=== PATIENT | male | born 1955 | race Caucasian/White ===

== ENCOUNTER → 2023-10-13 11:00 | Outpatient (REF) | payer MEDICARE, OTHER, SELFPAY | LOC: DHVS 11:00 | PROVIDERS: ATTENDING PHYSICIAN Physician Assistant; FAMILY PHYSICIAN Surgery Vascular Surgery | DX: I77.1 Stricture of artery (principal); I77.9 Disorder of arteries and arterioles, unspecified | CPT/HCPCS: 93880 ==

== ENCOUNTER → 2023-11-02 08:27 | Outpatient (REF) | payer MEDICARE, OTHER, SELFPAY | LOC: RAD 08:27 | PROVIDERS: ATTENDING PHYSICIAN Surgery Vascular Surgery; FAMILY PHYSICIAN Internal Medicine Geriatric Medicine | DX: I77.0 Arteriovenous fistula, acquired (principal) | CPT/HCPCS: 93990 ==

== ENCOUNTER 2023-11-24 06:07 | Day surgery (SDC) | payer MEDICARE, OTHER, SELFPAY ==
--- NOTE | 2023-11-17 07:36 | PTCARENOTE ---
Patients 08/14/23 EKG abnormal- reviewed by Dr. Hawk- no additional interventions required
[2023-11-24] VITALS (10 sets, daily range): BP systolic 127–190; BP diastolic 46–91; BMI 27.3
[2023-11-24 06:39] LABS: Hematocrit 37.2 % (39.0-52.0); Hemoglobin 12.2 g/dL (13.0-18.0); Mean Corp Hgb Conc. 32.8 g/dL (33.0-37.0); Mean Corpuscular Hgb 31.6 pg (27.0-31.0); Mean Corpuscular Volume 96.4 fL (80.0-94.0); Mean Platelet Volume 11.1 fL (7.4-10.4); Platelet Count 144 10^3/uL (130-400); Red Blood Cell Count 3.86 10^6/uL (4.70-6.10); Red Cell Dist. Width 15.4 % (11.5-14.5); White Blood Cell Count 10.6 10^3/uL (4.8-10.8)
[2023-11-24 06:49] LABS: INR 1.07; PT 13.9 Sec (11.4-14.6)
[2023-11-24 06:50] LABS: APTT 28.1 Sec (23.4-35.0)
[2023-11-24 07:06] LABS: Blood Urea Nitrogen 54 mg/dl (9-20); Calcium 9.4 mg/dl (8.4-10.2); Carbon Dioxide 31 mmol/L (22-30); Chloride 98 mmol/L (98-107); Estimated Creatinine Clearance 8 ml/min; Glucose 88 mg/dl (70-99); Potassium 4.4 mmol/L (3.5-5.1); Sodium 139 mmol/L (135-145); eGFR 6.82
--- NOTE | 2023-11-24 07:10 | W.SUR.PREOP ---
Pre-Operative Surgical Note
-
I have examined this patient prior to the performance of the scheduled procedure.
The patient's condition is unchanged from the time of the current History and
Physical and the patient is able to undergo the scheduled procedure.
--- NOTE | 2023-11-24 08:10 | W.SUR.POST ---
Surgical Immediate Post Op
Note
Pre Op Diagnosis: End-stage renal disease
Post Op Diagnosis: Same
Procedure Performed: LUE fistulagram, balloon angioplasty outflow severe stenosis with standard angioplasty and cutting balloons
Primary Surgeon: Juanpablo
Anesthesia: Local and sedation
Estimated Blood Loss: <2 cc
Fluids: See anesthesia flowsheet
Drains/Shunts: None
Specimens/Cultures: None
Doppler/Duplex/Angio (Y/N): Y
Complications: None
Operative Findings: +thrill
--- NOTE | 2023-11-24 08:43 | OR.RPT ---
Addendum entered and electronically signed by Ismael Geronimo MD 11/24/23 10:57:
Addendum to below. Following this sentence 'A 4-0 Monocryl pursestring stitch was placed around the sheath entry site. ', there should be an additional sentence that reads 'The sheath was then withdrawn as the stitch was tied down.'
Original Note:
Operative Report
Operative Report
PROCEDURE DATE: 11/24/2023
Preoperative diagnosis:
1. End-stage renal disease on hemodialysis.
2. Failing left upper extremity AV graft.
Postoperative diagnosis: Same
Procedure:
1. Duplex assisted left upper extremity AV graft cannulation.
2. Left upper extremity fistulogram and central venogram.
3. Balloon angioplasty of outflow vein stenosis with a standard 8 mm angioplasty balloon.
4. Balloon angioplasty of outflow vein stenosis with 6 mm cutting angioplasty balloon. Followed by 7 mm standard angioplasty balloon.
5. Supervision and interpretation.
Surgeon: Juanpablo
Therapy Director: None
Complications: None
Anesthesia: Local, sedation
Fluoroscopy:
2.9 min
6 mGy
1.64 Gy.cm2
Indications for procedure:
Inability to successfully access/use left upper extremity AV graft. Ultrasound had suggested outflow stenosis. There also was a suggestion of an axillary artery stenosis (patient with history of subclavian artery stent, QUINONES graft as well).
Therefore I discussed fistulogram with possible angioplasty/stenting, and had discussed possible cannulation of axillary/subclavian artery and angioplasty if necessary. Risk/benefit/alternatives all fully discussed. Patient understood all wish to
proceed.
Description of procedure:
Patient was identified, brought to the operating room. Placed on the table in the supine position. After the adequate administration of anesthesia, the patient was prepped and draped in the standard surgical fashion. A standard preoperative
timeout was undertaken and everybody was in agreement with the plan.
The left upper extremity AV graft was punctured in the distal upper arm and a central facing direction under direct duplex ultrasound guidance using a micropuncture kit. I then exchanged for a 0.035 inch wire which got held up in the proximal upper
arm and looped. I then exchanged for a 5 [place] sheath. Fistulogram was performed. This demonstrated patent AV graft, but just beyond the anastomosis to the prior transposed basilic vein remnant, there was a severe stenosis in that segment of
outflow and this is where the wire coiled. Central venogram demonstrated widely patent central veins with no evidence of central venous stenosis. Next, I used a flopping on hydrophilic wire and a glide catheter was able to traverse the area of
stenosis. I then exchanged for a Storq wire and perform balloon angioplasty of stenosis with 8 mm angioplasty balloon. However the waist in the balloon failed to resolve. Completion angiogram also demonstrated significant residual stenosis also
with filling defect in the central portion. Therefore, at this point I exchanged for a 7 [place] sheath and a 0.018 inch wire. I then performed balloon angioplasty with a Cutting Balloon (6 mm). Using this balloon I was able to completely resolve
the waist. I immediately followed this with a 7 mm angioplasty balloon with prolonged inflation. While this balloon was inflated, I performed fistulogram to reflux contrast across the arterial anastomosis and this demonstrated a widely patent
arterial anastomosis, and good retrograde flow into the more proximal brachial/axillary artery as well as distally in the brachial artery. Completion angiogram now demonstrated excellent result with complete resolution of stenosis. Therefore, at
this point I felt that I did not likely need to assess the inflow potential axillary/subclavian artery issue. Especially given that this was not low risk given the proximity of the stent and the calcified plaque to the vertebral artery and the QUINONES
bypass graft.
Therefore at this point the wires and catheters were withdrawn. A 4-0 Monocryl pursestring stitch was placed around the sheath entry site. Manual pressure was also applied to the puncture site. Hemostasis was fully achieved. The patient had a
good thrill in the graft upon completion. The patient tolerated the procedure well.
== END 2023-11-24 10:19 | disposition home or self-care (01) ==
LOC: CATH 06:07
PROVIDERS: ATTENDING PHYSICIAN Surgery Vascular Surgery; FAMILY PHYSICIAN Internal Medicine Geriatric Medicine; OTHER PHYSICIAN Internal Medicine Cardiovascular Disease
DX: I12.0 Hypertensive chronic kidney disease with stage 5 chronic kidney disease or end stage renal disease (principal); N18.6 End stage renal disease; Z99.2 Dependence on renal dialysis; Z95.5 Presence of coronary angioplasty implant and graft; I25.10 Atherosclerotic heart disease of native coronary artery without angina pectoris; Z79.82 Long term (current) use of aspirin
CPT/HCPCS: 36902; 80048; 85027; 85610; 85730; 86850; 86900; 86901; C1725; C1769; C1894; C2623; Q9967

== ENCOUNTER 2023-12-20 06:39 | Day surgery (SDC) | payer MEDICARE, OTHER, SELFPAY ==
--- NOTE | 2023-12-12 16:23 | PTCARENOTE ---
Abn ECG, Dr. Hawk notified. No new requests/orders at this time.
--- NOTE | 2023-12-20 11:54 | HP.FOC2 ---
Focused History & Physical
Chief Complaint
HPI:
Chief Complaint: Removal peritoneal dialysis catheter
HPI / Indication for Planned Procedure: Patient is a 68-year-old male with end-stage renal disease currently utilizing hemodialysis who presents today for removal of his peritoneal dialysis catheter which is no longer in use.
Relevant Past Medical History: Other (CAD, hypercholesterolemia, end-stage renal disease on hemodialysis, peripheral vascular disease, renovascular disease, left carotid artery stenosis, hypertension)
Relevant Social History: Tobacco Use
Relevant Family History: Negative
Relevant Past Surgical History: Positive for (CABG, cardiac cath with stenting, left internal carotid artery angioplasty and stent, left upper extremity AV graft, peritoneal dialysis catheter placement)
Review of Systems
Review of Pertinent Systems: All Systems Negative
Medication
See Medication form for detailed medications: Yes
Medication List (including Herbals & OTC):
cholecalciferol (vitamin D3) 50 mcg (2,000 unit) tablet 2,000 units PO DAILY Supplement 08/20/21
aspirin 81 mg tablet,delayed release 81 mg PO DAILY Blood clot prevention/tx ##0 05/19/22
nitroglycerin 0.4 mg sublingual tablet 0.4 mg sublingual [id number] PRN chest pain 09/21/22
sevelamer carbonate 800 mg tablet 1,600 mg PO TID Kidney Disease 06/24/23
calcitriol 0.25 mcg capsule 0.25 mcg PO HS renal 08/03/23
carvedilol 25 mg tablet 25 mg PO QPM Blood Pressure 08/03/23
pantoprazole 40 mg tablet,delayed release 40 mg PO DAILY #30 tabs 08/05/23
amlodipine 2.5 mg tablet 2.5 mg PO DAILY 11/23/23
carvedilol 12.5 mg tablet 12.5 mg PO MOWEFR 11/23/23
carvedilol 25 mg tablet 25 mg PO SUTUTHSA 11/23/23
fluorouracil 0.5 % topical cream 1 applic topical DAILY 11/23/23
guar gum 1 tbsp PO DAILY 11/23/23
Prorenal+D And [place] 3 1 cap PO HS 12/14/23
atorvastatin 40 mg tablet 40 mg PO HS 12/14/23
Medications Reviewed: Yes
Allergies and Reactions
Patient has Allergies: No
Noted Allergies and Reactions:
Allergy/AdvReac Type Severity Reaction Status Date / Time
No Known Allergies Allergy Verified 12/14/23 09:24
Pertinent Physical Exam
All Other Systems: Negative
Head/Neck: Normal
Lungs: Normal
Heart: Normal
Abdomen: Other (Left-sided peritoneal dialysis catheter)
Extremities: Normal
Neurological: Normal
Diagnosis / Assessment
68-year-old male presenting for removal of peritoneal dialysis catheter as it is no longer in use.
Plan / Procedure
Removal peritoneal dialysis catheter
Anesthesia/Sedation to be done by Anesthesia Provider: Yes
[2023-12-20 12:05] VITALS: BP 85/54
[2023-12-20 12:06] VITALS: BMI 27.8
[2023-12-20 12:07] VITALS: BMI 27.8
[2023-12-20] MEDS: TYLENOL 1000 MG PO (12:28)
[2023-12-20] MEDS: NSS 1000 IV (12:29)
--- NOTE | 2023-12-20 13:56 | W.IMMPOSTOP ---
Addendum entered and electronically signed by Camilo Peña MD 12/20/23 14:02:
#[id number]
Original Note:
Surgical Immed Post Op Note
-
Primary Surgeon: Mariana
Assisting Surgeon: None
Pre-op Diagnosis: ESRD on HD
Post-op Diagnosis: ESRD on HD
Procedure Performed: removal peritoneal dialysis catheter
Anesthesia Type: MAC + 0.25% Marcaine
Specimen / Cultures: none
Estimated Blood Loss: 4mL
Complications: none immediate
Operative Findings: peritoneal dialysis catheter removed in its entirety. no additional incidental findings.
pt updated post op in waiting area
[2023-12-20 13:58] VITALS: BP 146/48
[2023-12-20 14:13] VITALS: BP 128/53
[2023-12-20 14:30] VITALS: BP 137/53
[2023-12-20 14:45] VITALS: BP 139/45
[2023-12-20 15:00] VITALS: BP 152/46
== END 2023-12-20 15:10 | disposition home or self-care (01) ==
LOC: SDS 06:39
PROVIDERS: ATTENDING PHYSICIAN Surgery
DX: N18.6 End stage renal disease (principal); Z99.2 Dependence on renal dialysis; Z98.890 Other specified postprocedural states
CPT/HCPCS: 49422

== ENCOUNTER → 2024-03-30 08:57 | Outpatient (REF) | payer MEDICARE, OTHER, SELFPAY | LOC: DHVS 08:57 | PROVIDERS: ATTENDING PHYSICIAN Surgery Vascular Surgery; FAMILY PHYSICIAN Internal Medicine Geriatric Medicine | DX: Z01.818 Encounter for other preprocedural examination (principal); I77.0 Arteriovenous fistula, acquired; I73.9 Peripheral vascular disease, unspecified | CPT/HCPCS: 73206; 93986; Q9967 ==

== ENCOUNTER → 2024-06-07 07:59 | Outpatient (REF) | payer MEDICARE, OTHER, SELFPAY | LOC: DHVS 07:59 | PROVIDERS: ATTENDING PHYSICIAN Surgery Vascular Surgery; FAMILY PHYSICIAN Internal Medicine Geriatric Medicine; REFERRING PHYSICIAN Internal Medicine Cardiovascular Disease | DX: I65.22 Occlusion and stenosis of left carotid artery (principal); I77.1 Stricture of artery | CPT/HCPCS: 93880; 93931 ==

== ENCOUNTER → 2024-06-12 07:31 | Outpatient (REF) | payer MEDICARE, OTHER, SELFPAY | LOC: RCS 07:31 | PROVIDERS: ATTENDING PHYSICIAN Internal Medicine Cardiovascular Disease; FAMILY PHYSICIAN Internal Medicine Geriatric Medicine | DX: I25.10 Atherosclerotic heart disease of native coronary artery without angina pectoris (principal) | CPT/HCPCS: 93306 ==

== ENCOUNTER 2024-07-05 07:54 | Day surgery (SDC) | payer MEDICARE, OTHER, SELFPAY ==
[2024-07-05] VITALS (15 sets, daily range): BP systolic 136–181; BP diastolic 45–65; BMI 28.2
[2024-07-05] MEDS: BACTROBAN NASAL 1 GRAM NASAL (08:46)
[2024-07-05] MEDS: PERIDEX 0.12% ORAL RINSE 15 ML PO (08:46)
--- NOTE | 2024-07-05 08:46 | HP.FOC2 ---
Focused History & Physical
Chief Complaint
HPI:
Chief Complaint: ESRD
HPI / Indication for Planned Procedure: This is a 69 year old male who presents for scheduled ligation of LUE AV fistula and creation of RUE AV fistula ore possible graft with Dr. Ismael Geronimo. He reports he is at baseline health. He denies recent
illness, trauma, or hospitalizations. Denies fever, chills, NV, ABD pain, SOB, and CP.
Relevant Past Medical History: Coronary Artery Disease, Hypertension and Other (GI bleed, ESRD, HD, PAD, carotid artery stenosis )
Relevant Social History: Tobacco Use
Relevant Past Surgical History: Positive for (CABG, cardiac cath with stenting, left internal carotid artery angioplasty and stent, left upper extremity AV graft, peritoneal dialysis catheter placement)
Review of Systems
Review of Pertinent Systems: All Systems Negative
Medication
See Medication form for detailed medications: Yes
Medication List (including Herbals & OTC):
cholecalciferol (vitamin D3) 50 mcg (2,000 unit) tablet 2,000 units PO DAILY Supplement 08/20/21
aspirin 81 mg tablet,delayed release 81 mg PO DAILY Blood clot prevention/tx ##0 05/19/22
nitroglycerin 0.4 mg sublingual tablet 0.4 mg sublingual [id number] PRN chest pain 09/21/22
sevelamer carbonate 800 mg tablet 1,600 mg PO TID Kidney Disease 06/24/23
calcitriol 0.25 mcg capsule 0.25 mcg PO HS renal 08/03/23
carvedilol 25 mg tablet 25 mg PO QPM Blood Pressure 08/03/23
pantoprazole 40 mg tablet,delayed release 40 mg PO DAILY #30 tabs 08/05/23
amlodipine 2.5 mg tablet 2.5 mg PO DAILY 11/23/23
carvedilol 12.5 mg tablet 12.5 mg PO MOWEFR 11/23/23
carvedilol 25 mg tablet 25 mg PO SUTUTHSA 11/23/23
Prorenal+D And [place] 3 1 cap PO HS 12/14/23
atorvastatin 40 mg tablet 40 mg PO HS 12/14/23
acetaminophen 500 mg tablet (Tylenol Extra Strength) 1,000 mg (2 x 500 mg) PO [id number] PRN mild pain #1 tab 12/20/23
Medications Reviewed: Yes
Allergies and Reactions
Patient has Allergies: No
Noted Allergies and Reactions:
Allergy/AdvReac Type Severity Reaction Status Date / Time
No Known Allergies Allergy Verified 07/04/24 13:49
Pertinent Physical Exam
All Other Systems: Negative
Head/Neck: Normal
Lungs: Other (BL lungs clear but diminshed )
Heart: Normal (RRR)
Abdomen: Normal (NTND)
Extremities: Other (LUE AVF pulsatile, no thrill, BL radial pulse +2 )
Neurological: Normal
Diagnosis / Assessment
69 year old male ESRD, requiring HD.
Plan / Procedure
Will proceed with left UE AVF ligation and RUE AVF creation as scheduled for HD access.
Anesthesia/Sedation to be done by Anesthesia Provider: Yes
[2024-07-05 08:47] LABS: Hematocrit 37.1 % (39.0-52.0); Hemoglobin 11.7 g/dL (13.0-18.0); Mean Corp Hgb Conc. 31.5 g/dL (33.0-37.0); Mean Corpuscular Volume 101.4 fL (80.0-94.0); Mean Platelet Volume 11.6 fL (7.4-10.4); Platelet Count 125 10^3/uL (130-400); Red Blood Cell Count 3.66 10^6/uL (4.70-6.10); Red Cell Dist. Width 16.9 % (11.5-14.5); White Blood Cell Count 6.4 10^3/uL (4.8-10.8)
[2024-07-05] MEDS: NSS 500 IV (08:47)
[2024-07-05 08:57] LABS: INR 0.94; PT 13.1 Sec (11.4-14.6)
[2024-07-05 08:58] LABS: APTT 31.9 Sec (23.4-35.0)
[2024-07-05 09:54] LABS: Blood Urea Nitrogen 52 mg/dl (9-20); Calcium 8.8 mg/dl (8.4-10.2); Carbon Dioxide 27 mmol/L (22-30); Chloride 100 mmol/L (98-107); Estimated Creatinine Clearance 8 ml/min; Glucose 85 mg/dl (70-99); Potassium 5.2 mmol/L (3.5-5.1); Sodium 141 mmol/L (135-145); eGFR 6.88
--- NOTE | 2024-07-05 11:23 | W.SUR.POST ---
Surgical Immediate Post Op
Note
Pre Op Diagnosis: End-stage renal disease
Post Op Diagnosis: Same
Procedure Performed: Ligation of left upper extremity AV graft, creation of right brachiocephalic AV fistula
Primary Surgeon: Juanpablo
Secondary Surgeons: Ryan CHAVIS
Anesthesia: LMA
Estimated Blood Loss: 5 cc
Fluids: See anesthesia flowsheet
Drains/Shunts: None
Specimens/Cultures: None
Doppler/Duplex/Angio (Y/N): Y
Complications: None
Operative Findings: + Thrill
--- NOTE | 2024-07-05 12:46 | OR.RPT ---
Operative Report
Operative Report
PROCEDURE DATE: 07/05/2024
Preoperative diagnosis: End-stage renal disease on hemodialysis
Postoperative diagnosis: Same
Procedure:
1. Ligation of left upper extremity AV graft.
2. Right upper extremity brachiocephalic arteriovenous fistula creation
Surgeon: Juanpablo
Glazier Helper: FILIBERTO Davis, required for all aspects of procedure including assistance with traction/countertraction, following of suture line, assistance with closure.
Complications: None
Anesthesia: General
Indications for procedure:
History of left upper extremity transposed basilic vein fistula that could never be accessed. Subsequent revision to AV graft. Inability to access that as well. Risk/benefit/alternatives of new access creation in the right upper extremity were
all fully discussed. I also discussed concomitant ligation of left upper extremity AV graft access. Patient understood all and wished to proceed
Description of procedure:
Patient was identified brought to the operating room placed on the table in supine position. After the adequate administration of anesthesia and perioperative antibiotics he was prepped and draped in the standard surgical fashion. A standard
preoperative timeout was undertaken and everybody was in agreement the plan.
I first addressed the left upper extremity. A small incision was made just distal (along the course of the AV graft) to the prior arterial anastomotic incision site. This was done with a 15 blade and carried through skin subcutaneous tissue with
electrocautery. The AV graft proximal outflow was identified and carefully circumferentially dissected. A total of 4 heavy silk ties were placed to ligate the graft. There is no further pulsation or thrill in the graft. At this point I was very
satisfied. I irrigated and achieved full hemostasis. We then closed this in layers using 3-0 Vicryl followed by 4-0 Monocryl subcuticular stitch. Dermabond was applied. At this point the blood pressure cuff was moved to the left arm.
We turned our attention to the right upper extremity.
A transverse incision was made in the proximal volar aspect of the right forearm just distal to the antecubital fossa. This was carried through skin subcutaneous tissue. The antecubital extension of the cephalic vein was identified and carefully
dissected away from surrounding structures and great care to avoid any injury to structures. Any branches were ligated between silk ties and then divided. Of note the cephalic vein outflow was appearing to be a reasonable vein, but there was
slight almost scarring and dissecting it in the antecubital fossa secondary to likely prior venipuncture. However, I was able to successfully mobilize a suitable length of cephalic vein. Once I had done this I then deepened my dissection in the
medial aspect of the incision site through the fascial layer. The brachial artery was carefully identified and carefully dissected away from surrounding structures take great care to avoid injury to structures. I passed a vessel loop around it
proximally and distally. Of note the artery to palpation felt like the wall was slightly thickened, but there did not appear appear to be a clear stenosis. Next I gave the patient 3000 units of intravenous heparin. I then ligated the cephalic
vein distally in my field with a silk tie and a clip. I then transected it. I distended under heparinized saline. It distended very well. I marked the anterior surface under distention to avoid any kinking or twisting. The vein was suitable
size but just to be sure I ran a 3 mm dilator through which passed without any difficulty whatsoever. Next I tightened my double looped Vesseloops on the artery proximally distally. I then made an arteriotomy with 11 blade extended using a Wagner
scissor. As I suspected there was slight thickening of the intima/plaque on the lateral aspect of the wall of the artery. However there was no significant stenosis. I spatulated the cephalic vein and sewed an end to side anastomosis using a
running 6-0 Prolene suture. Prior to completing and tying down my suture line I backbled and forebled the [place] artery. Next I released my bulldog clamp on the vein and then released my Vesseloops on the artery. There was an excellent thrill in
the fistula. There was an excellent Doppler signal in the distal radial artery at the wrist. At this point I was very satisfied. I irrigated. I achieved and confirmed full hemostasis. We then closed in layers using 3-0 Vicryl deep dermal layer
followed by 4-0 Monocryl subcuticular stitch. Dermabond was applied. The patient tolerated the procedure well.
[2024-07-05] MEDS: TYLENOL 650 MG PO (13:09)
[2024-07-05] MEDS: ROXICODONE 2.5 MG PO (14:32)
[2024-07-05] MEDS: COREG 25 MG PO (14:35)
== END 2024-07-05 16:32 | disposition home or self-care (01) ==
LOC: CATH 07:54
PROVIDERS: ATTENDING PHYSICIAN Surgery Vascular Surgery; FAMILY PHYSICIAN Internal Medicine Geriatric Medicine; OTHER PHYSICIAN Internal Medicine Cardiovascular Disease
DX: T82.898D Other specified complication of vascular prosthetic devices, implants and grafts, subsequent encounter (principal); Y83.2 Surgical operation with anastomosis, bypass or graft as the cause of abnormal reaction of the patient, or of later complication, without mention of misadventure at the time of the procedure; I25.10 Atherosclerotic heart disease of native coronary artery without angina pectoris; N18.6 End stage renal disease; I12.0 Hypertensive chronic kidney disease with stage 5 chronic kidney disease or end stage renal disease; Z99.2 Dependence on renal dialysis; Z79.82 Long term (current) use of aspirin; Z79.899 Other long term (current) drug therapy
CPT/HCPCS: 36821; 37607; 80048; 85027; 85610; 85730; 86850; 86900; 86901

== ENCOUNTER → 2024-10-12 09:02 | Outpatient (REF) | payer MEDICARE, OTHER, SELFPAY | LOC: RAD 09:02 | PROVIDERS: ATTENDING PHYSICIAN Surgery Vascular Surgery; FAMILY PHYSICIAN Internal Medicine Geriatric Medicine | DX: I77.1 Stricture of artery (principal); I65.23 Occlusion and stenosis of bilateral carotid arteries; N18.6 End stage renal disease | CPT/HCPCS: 93880; 93931; 93990 ==

== ENCOUNTER → 2025-01-18 15:45 | Outpatient (REF) | payer OTHER, SELFPAY ==
[2025-01-18 17:08] LABS: Hemoglobin 8.1 g/dL (13.0-18.0)
== END ==
LOC: OLAB 15:45
PROVIDERS: ATTENDING PHYSICIAN Internal Medicine Nephrology
DX: N18.6 End stage renal disease (principal)
CPT/HCPCS: 36415; 85018

== ENCOUNTER → 2025-04-26 08:22 | Outpatient (REF) | payer MEDICARE, OTHER, SELFPAY | LOC: RAD 08:22 | PROVIDERS: ATTENDING PHYSICIAN Surgery Vascular Surgery; FAMILY PHYSICIAN Internal Medicine Geriatric Medicine | DX: I65.23 Occlusion and stenosis of bilateral carotid arteries (principal); I77.1 Stricture of artery | CPT/HCPCS: 93880; 93931; 93990 ==

== ENCOUNTER → 2025-06-14 08:28 | Outpatient (REF) | payer MEDICARE, OTHER, SELFPAY | LOC: HWRCS 08:28 | PROVIDERS: ATTENDING PHYSICIAN Internal Medicine Cardiovascular Disease; FAMILY PHYSICIAN Internal Medicine Geriatric Medicine | DX: I25.10 Atherosclerotic heart disease of native coronary artery without angina pectoris (principal) | CPT/HCPCS: 93306 ==

== ENCOUNTER 2025-06-21 12:21 | Inpatient (IN) | payer MEDICARE, OTHER, SELFPAY ==
[2025-06-21] VITALS (35 sets, daily range): BP systolic 81–153; BP diastolic 36–127; BMI 27.9
--- NOTE | 2025-06-21 07:44 | ITS.CL.CATH ---
[facility] - Catheterization
Cardiac Catheterization
Procedure Report:
LEFT AND RIGHT HEART CATHETERIZATION
Date of Procedure: June 21, 2025
Referring: Rey Casiano MD
PROCEDURES:
1. Left heart catheterization, coronary angiogram.
2. Moderate sedation.
3. Right Heart catheterization.
INDICATION: New cardiomyopathy with LVEF of 25% with moderate to severe aortic stenosis and moderate mitral regurgitation
ACCESS: Right radial artery, 6Fr. sheath, under US guidance and Right brachial vein, 6Fr sheath, under US guidance
HEMODYNAMICS : (mmHg)
RA (m) : 14
RV (s/d,m) : 61/6; 15
PA (s/d, m) : 64/30; 44
PCWP (m) : 35 with v waves to 51mmHG
PA saturation: 58.8%
AO saturation: 89.2% on 2L Ox via NC
RA saturation: 59.1% on 2L Ox via NC
Cardiac Output : 4.68 L/min
Cardiac Index : 2.43 L/min/m-2
Systemic vascular resistance: 1573 dsc^(-5)
Pulmonary vascular resistance: 1.92 conway unit
AO (s/d) : 153/66
LVEDP : 38
Mean invasive transaortic mean gradient of 31mmHG, MYAA 0.71cm2 consistent with severe aortic stenosis
CORONARY FINDINGS
Dominance: Left
Left Main Trunk (LMT): �Large caliber vessel that gives rise to the LAD and LCx branches. LM to LCX stent is patent.
Left Anterior Descending Artery (LAD): �Large caliber vessel that courses along the anterior inter-ventricular groove before wrapping around the cardiac apex. The ostial LAD has a 80% stenosis. The mid to distal LAD is supplied by the QUINONES.
Left Circumflex Artery (LCx): �Large caliber dominant vessel that gives off medium caliber first major obtuse marginal (OM), and a large OM2 that has an early superior branch and then the inferior limb itself bifurcates. The LCx has a small caliber
left posterior descending artery. The OM2 has a 70% stenosis right after it bifurcates. �
Right Coronary Artery (RCA): Small caliber non-dominant vessel with mild luminal irregularities.
GRAFT ANGIOGRAPHY:
QUINONES to LAD: Widely patent.
SVG to OM2: Widely patent with proximal 30% stenosis. The SVG anastomoses to the inferior limb of the bifurcating OM2
80mg IV lasix given at end of the case.
SEDATION: 67 minutes of procedural sedation was utilized. IV Midazolam and IV Fentanyl were administered. An independent medical billing representative was present to assist with and help manage the patient's lecvel of consciousness and physiologic status.
RADIATION SUMMARY: Fluoro Time (min): 19.2, Dose (mGy): 942, DAP (Gy.cm2) : 65
Closure Device: There were no immediate intra-procedural complications. The sheath was pulled in the optical laboratory mechanic and a vascular-band applied to the right wrist for radial artery hemostasis using the patent hemostasis technique.
CONCLUSIONS
1. Left dominant circulation.
2. Significant [place] CAD
3. Left main to LCx stent from 2021 is patent.
4. Grafts are patent.
5. Mean invasive transaortic mean gradient of 31mmHG, MAYA 0.71cm2 consistent with severe aortic stenosis
RECOMMENDATIONS
1. Wean radial band per protocol. Monitor right hand perfusion and for bleeding from the radial site following removal of the vascular-band following trans-radial access.
2. Continue aggressive medical therapy and risk factor modification for secondary CAD prevention. Hospitalize for IV diuresis and ultrafiltration via HD.
3. Hydrate with normal saline to mitigate the risk of contrast-induced acute kidney injury.
4. Complete work-up for possible TAVR after checking CTA Chest, abd , pelvis per TAVR protocol and discussion at structural meeting.
Lois Sorensen MD, FAC, [facility] [place]
copy: Rey Casiano MD
[2025-06-21 09:13] LABS: Hematocrit 37.7 % (39.0-52.0); Hemoglobin 11.7 g/dL (13.0-18.0); Mean Corp Hgb Conc. 31.0 g/dL (33.0-37.0); Mean Corpuscular Volume 94.3 fL (80.0-94.0); Platelet Count 115 10^3/uL (130-400); Red Cell Dist. Width 16.8 % (11.5-14.5)
[2025-06-21 09:31] LABS: ALT (SGPT) 16 U/L (0-50); AST (SGOT) 19 U/L (17-59); Albumin 4.3 g/dl (3.5-5.0); Alkaline Phosphatase 107 U/L (38-126); Blood Urea Nitrogen 56 mg/dl (9-20); Calcium 9.1 mg/dl (8.4-10.2); Carbon Dioxide 32 mmol/L (22-30); Chloride 98 mmol/L (98-107); Estimated Creatinine Clearance 7 ml/min; Glucose 77 mg/dl (70-99); Potassium 5.0 mmol/L (3.5-5.1); Sodium 137 mmol/L (135-145); Total Protein 6.8 g/dl (6.3-8.2); eGFR 5.92
--- NOTE | 2025-06-21 13:08 | HPS.HSE ---
Family Physician
-
Family Physician: Harsh Hood
Chief Complaint
-
elective cath
History of Present Illness
70-year-old male past medical history of CAD status post CABG and stenting, HFrEF, severe aortic stenosis, hypertension, ESRD on hemodialysis Tuesday, Tuesday, Tuesday, PAD, carotid artery stenosis status post left internal carotid artery
angioplasty/stent, GI bleeding who underwent elective catheterization today as part of TAVR workup. �During the procedure he became severely hypertensive and hypoxemic.
Patient had been having dry cough for the past 2 weeks. He saw his continuous mining operator who thought this may be secondary to heart failure as a result of severe aortic stenosis. He had elective cardiac catheterization planned for today.
During cardiac catheterization today his blood pressure went up to 160s systolic and patient was having some chest pain. He was given 80 of IV Lasix.
He currently denies any chest pain. He denies any shortness of breath recently. His weight has been stable. He last received dialysis on Tuesday and is due for dialysis today. He does make some urine occasionally. Denies swelling in the legs.
He smokes 5 cigarettes a day. He denies alcohol.
Medical History
Past Medical History
Past Medical History: Reports Other (CAD status post CABG and stenting, HFrEF, severe aortic stenosis, hypertension, ESRD on hemodialysis Tuesday, Tuesday, Tuesday, PAD, carotid artery stenosis status post left internal carotid artery
angioplasty/stent, GI bleeding)
Past Surgical History: Reports None
Social History
Tobacco: Smoker
Alcohol: None
Drug: None
Family History
Family History: Not pertinent
Allergies / Home Medications
Allergies reflects when Allergies were last updated in [employer].
Home Medications with original date entered in [employer]
Allergy/Medication List:
Allergies
Allergy/AdvReac Type Severity Reaction Status Date / Time
No Known Allergies Allergy Verified 06/21/25 09:18
Home Medications
cholecalciferol (vitamin D3) 50 mcg (2,000 unit) tablet 2,000 units PO DAILY Supplement 08/20/21
aspirin 81 mg tablet,delayed release 81 mg PO DAILY Blood clot prevention/tx ##0 05/19/22
sevelamer carbonate 800 mg tablet 1,600 mg PO TID Kidney Disease 06/24/23
calcitriol 0.25 mcg capsule 0.25 mcg PO HS renal 08/03/23
carvedilol 25 mg tablet 25 mg PO QPM Blood Pressure 08/03/23
amlodipine 2.5 mg tablet 2.5 mg PO DAILY 11/23/23
carvedilol 12.5 mg tablet 12.5 mg PO MOWEFR 11/23/23
carvedilol 25 mg tablet 25 mg PO SUTUTHSA 11/23/23
atorvastatin 40 mg tablet 40 mg PO HS 12/14/23
acetaminophen 500 mg tablet (Tylenol Extra Strength) 1,000 mg (2 x 500 mg) PO Q6HPRN PRN mild pain #1 tab 12/20/23
fluorouracil 0.5 % topical cream 1 applic topical DAILY 06/21/25
guaifenesin 600 mg tablet, extended release 12 hr (Mucinex) 600 mg PO HS 06/21/25
guar gum 1 tbsp PO DAILY 06/21/25
oxymetazoline 0.05 % nasal spray 2 spray intranasal Q12H PRN dryness 06/21/25
pantoprazole 40 mg tablet,delayed release 40 mg PO DAILY 06/21/25
vitamin B complex-vitamin C-folic acid 0.8 mg tablet (Jaquelin-Erasmo) 1 tab PO HS 06/21/25
Review of Systems
-
History Source: Patient
A 12 point ROS was completed and negative except as noted: Yes
Constitutional: Reports No Symptoms
EENT: Reports No Symptoms
Respiratory: Reports See HPI
Cardiac: Reports No Symptoms
Abdomen/GI: Reports No Symptoms
: Reports No Symptoms
Musculoskeletal: Reports No Symptoms
Skin: Reports No Symptoms
Neurological: Reports No Symptoms
Endocrine: Reports No Symptoms
Hematologic/Lymphatic: Reports No Symptoms
Psych: Reports No Symptoms
Physical Exam
Vital Signs
Vital Signs
Temp Pulse Resp BP Pulse Ox
97.5 F 69 14 120/80 94
06/21/25 12:30 06/21/25 13:00 06/21/25 12:30 06/21/25 13:00 06/21/25 13:00
Physical Exam
General: Well Developed, Well Nourished and No Apparent Distress
HEENT: NormoCephalic, Moist mucous membranes and Atraumatic
Respiratory: Clear
Cardiac: S1/S2, Regular Rhythm and Murmur; No Rub
GI: Soft, Non Tender, Non Distended and Normal Bowel Sounds; No Organomegaly
Rectal: Deferred by Provider
Musculoskeletal: No Clubbing, No Cyanosis and No Edema
Skin: No Rash
Neuro: Nonfocal/grossly intact
Laboratory Results
-
06/21/25 09:06
06/21/25 09:06
Laboratory Results
Total Bilirubin 1.0 mg/dl (0.2-1.3) 06/21/25 09:06
AST 19 U/L (17-59) 06/21/25 09:06
ALT 16 U/L (0-50) 06/21/25 09:06
Alkaline Phosphatase 107 U/L (38-126) 06/21/25 09:06
Data Reviewed
-
Lab Data: Labs Reviewed by me
Old Records: Reviewed
Impression/Plan
-
IMPRESSION:
PLAN:
# Acute HFrEF exacerbation
-Currently on 3 L oxygen, normotensive
- Severely elevated wedge pressure on catheterization
- 80 IV Lasix given
- Will likely require dialysis today
-Check chest x-ray, EKG, troponin
-Recent echocardiogram shows EF of 27%
-Continue Mucinex for cough
- Nephrology consulted
CAD status post CABG/stents
- Continue aspirin, statin
Severe aortic stenosis
- Plan for TAVR in the near future
Essential hypertension
- Continue amlodipine
- Continue Coreg
ESRD on hemodialysis
- Nephrology consulted for hemodialysis
- Continue calcitriol
- Continue sevelamer
Chronic anemia renal disease
- Hemoglobin of 11.1 stable
Peripheral arterial disease
Carotid artery stenosis status post left internal carotid artery angioplasty/stent
History of GI bleeding
- Continue Protonix
Active smoker
Full code
DVT prophylaxis heparin
Cardiac diet
--- NOTE | 2025-06-21 13:47 | CM ---
Reviewed chart. Met with and Mrs. Oliva to review discharge plans. He states prior to admission he resides with his spouse in a one story home without any steps to enter. He states prior to admission he was independent with ambulation and
adls. He states he does not have any DME in the home. He states he has a prescription plan. He states he goes to outpatient dialysis at [facility] in [place] on Tuesday, Tuesday and Tuesday at 3:[address] states he [address] himself. He states
he has not needed VNA Services since his by-pass surgery. Will need to see his current functional level to see if he will have any skilled care. Medical work-up in progress. The discharge plan is to return home with his spouse and outpatient
dialysis versus home with spouse and outpatient dialysis and VNA services if indicated when medically stable.
--- NOTE | 2025-06-21 14:16 | W.CON.NEPH ---
Consultation
-
Date/Time Consultation Requested: 06/21/2025 2 PM
Date/Time Consultation Performed: 06/21/2025 2 PM
Requesting Provider: Dr. Knight
Performing Provider: Dr. Corado
Reason for Consultation: ESRD
Medical History
-
Chief Complaint: Status post cardiac catheterization
History of Present Illness:
This is a 70-year-old gentleman who is well-known to us for his end-stage renal disease on hemodialysis Tuesday at [facility]. He had dialysis on Tuesday without issues. He has been losing weight in the last few
weeks and does note that his appetite has been less. His weights at dialysis have been adjusted downward accordingly. He has coronary artery disease with bypass grafting in the past on beta-aurelio therapy as well as aspirin therapy. He is on a
multidrug regimen for hypertension which is controlled. He came to the hospital for elective cardiac catheterization as part of his workup for severe aortic stenosis. He was found to be hypoxic as well as with an elevated wedge pressure and is
being admitted.
Past Medical History
ESRD
CAD
CABG
Heart failure reduced ejection fraction 30%
Severe aortic stenosis
Hypertension
Right upper extremity AV fistula
Left internal carotid artery angioplasty stenting
Social History
Tobacco: Smoker
Alcohol: None
Family History
Family History: Not Pertinent
Allergies / Home Medications
Allergy/AdvReac Type Severity Reaction Status Date / Time
No Known Allergies Allergy Verified 06/21/25 09:18
�Medication �Instructions �Recorded �Confirmed �Type
cholecalciferol (vitamin D3) 50 2,000 units PO DAILY Supplement 08/20/21 06/21/25 History
mcg (2,000 unit) tablet
aspirin 81 mg tablet,delayed 81 mg PO DAILY Blood clot 05/19/22 06/21/25 Rx
release prevention/tx ##0
sevelamer carbonate 800 mg tablet 1,600 mg PO TID Kidney Disease 06/24/23 06/21/25 History
calcitriol 0.25 mcg capsule 0.25 mcg PO HS renal 08/03/23 06/21/25 History
carvedilol 25 mg tablet 25 mg PO QPM Blood Pressure 08/03/23 06/21/25 History
amlodipine 2.5 mg tablet 2.5 mg PO DAILY 11/23/23 06/21/25 History
carvedilol 12.5 mg tablet 12.5 mg PO MOWEFR 11/23/23 06/21/25 History
carvedilol 25 mg tablet 25 mg PO SUTUTHSA 11/23/23 06/21/25 History
atorvastatin 40 mg tablet 40 mg PO HS 12/14/23 06/21/25 History
acetaminophen 500 mg tablet 1,000 mg (2 x 500 mg) PO Q6HPRN 12/20/23 06/21/25 Rx
(Tylenol Extra Strength) PRN mild pain #1 tab
fluorouracil 0.5 % topical cream 1 applic topical DAILY 06/21/25 06/21/25 History
guaifenesin 600 mg tablet, 600 mg PO HS 06/21/25 06/21/25 History
extended release 12 hr (Mucinex)
guar gum 1 tbsp PO DAILY 06/21/25 06/21/25 History
oxymetazoline 0.05 % nasal spray 2 spray intranasal Q12H PRN dryness 06/21/25 06/21/25 History
pantoprazole 40 mg tablet,delayed 40 mg PO DAILY 06/21/25 06/21/25 History
release
vitamin B complex-vitamin C-folic 1 tab PO HS 06/21/25 06/21/25 History
acid 0.8 mg tablet (Jaquelin-Erasmo)
Review of Systems
-
Mild shortness of breath decreased appetite
All other systems: Negative unless noted
Physical Exam
Vital Signs
Vital Signs
Temp Pulse Resp BP Pulse Ox
97.5 F 75 14 150/93 96
06/21/25 12:30 06/21/25 14:00 06/21/25 12:30 06/21/25 14:00 06/21/25 14:00
Lab Results
WBC 8.4 10^3/uL (4.8-10.8) 06/21/25 09:06
RBC 4.00 10^6/uL (4.70-6.10) L 06/21/25 09:06
Hgb 11.7 g/dL (13.0-18.0) L 06/21/25 09:06
Hct 37.7 % (39.0-52.0) L 06/21/25 09:06
Plt Count 115 10^3/uL (130-400) L 06/21/25 09:06
Sodium 137 mmol/L (135-145) 06/21/25 09:06
Potassium 5.0 mmol/L (3.5-5.1) 06/21/25 09:06
Chloride 98 mmol/L (98-107) 06/21/25 09:06
Carbon Dioxide 32 mmol/L (22-30) H 06/21/25 09:06
BUN 56 mg/dl (9-20) H 06/21/25 09:06
Creatinine 8.8 mg/dL (0.7-1.3) H* 06/21/25 09:06
eGFR 5.92 06/21/25 09:06
Glucose 77 mg/dl (70-99) 06/21/25 09:06
Calcium 9.1 mg/dl (8.4-10.2) 06/21/25 09:06
Albumin 4.3 g/dl (3.5-5.0) 06/21/25 09:06
cardiac catheterization 06/13/2025 noted elevated wedge pressure on right heart catheterization
Physical Exam
Patient is awake alert oriented and in no distress. Mood and affect were pleasant, insight and judgment were good. Pupils are equal round and reactive to light, extraocular movements are intact, sclera were anicteric. Hearing was normal, ears and
nose are intact. Oropharynx was clear. Neck was supple with trachea midline and no thyromegaly. Heart was regular rate and rhythm without rubs. Lower extremities without edema. Lungs were coarse to auscultation bilaterally and with normal
excursion. Abdomen was soft, nontender, with normal active bowel sounds, and no hepatosplenomegaly. Skin was without rash and with normal turgor. Right upper extremity AV fistula was with good thrill and bruit, right IJ catheter noted clean dry and
intact
Data Reviewed
-
Medical Tests (Nuc Med, Echo etc): Report Reviewed by me
Labs: Labs Reviewed by me
Old Records: Reviewed
Assessment/Plan
-
Assessment
ESRD
Volume overload
Severe
CAD'/CABG
Hypertension
Plan
dialysis today
Challenge EDW
Can do additional ultrafiltration if necessary
Will need to find a new weight
Initiation of TAVR workup
--- NOTE | 2025-06-21 14:56 | PTCARENOTE ---
Patient received from photographic laboratory technician with left radial TR band intact, pox initially down to 89% on the left hand but is now up to 97%, radial and ulnar pulse obtainable with doppler. Right femoral site with gauze and tegaderm C/D/I, pedal pulse obtainable
with doppler. The patient denies chest pain or pressure. Channel Installer and hospitalist in to speak with patient. Patient drowsy but oriented to self, place, and time. The patient is to have HD today, usually on // schedule. SR on telemetry. Oxygen
saturation initially in the 80s on RA, 3L NC applied, oxygen saturation up to 97% on 3L. Plan of care discussed. Call medrano within reach. Care ongoing.
--- NOTE | 2025-06-21 15:12 | W.PN.NEPH.HD ---
Assessment
-
Pt seen on HD. no complaints. VSS, access ok
Progress Note - Hemodialysis
-
Date of Service: June 21, 2025
Duration: 30 minutes and 3 hours
Potassium Bath: 2
Calcium Bath: 2.5
Opti-Dialyzer: 160
Ultrafiltration: Other
Blood Flow: 400
Dialysate Flow: 600
Heparin: 0
EPO: 0
[2025-06-21] MEDS: FLEXBUMIN 25% FOR HEMODIALYSIS 12.5 GRAMS IV ×2 (15:30→16:48)
[2025-06-21] MEDS: MANNITOL 25% 12.5 GRAMS IV ×2 (15:35→16:47)
[2025-06-21 15:36] LABS: Troponin I 0.047 ng/ml
--- NOTE | 2025-06-21 15:47 | PTCARENOTE ---
Patient with low BP during dialysis treatment, 87/36. Stat one time dose of Midodrine ordered and given, see MAR. Denies feeling lightheaded or dizzy. Most recent BP 95/62. Care ongoing.
--- NOTE | 2025-06-21 15:50 | PTCARENOTE ---
Left radial TR band removed without incident. The site is ecchymotic but soft to palpation. Radial pulse palpable. Gauze and tegaderm applied. Care ongoing.
[2025-06-21] MEDS: HEPARIN 4300 UNITS INTRACATH (18:18)
[2025-06-21 19:49] LABS: Troponin I 0.160 ng/ml
[2025-06-21] MEDS: RENVELA PO (20:36)
[2025-06-21] MEDS: MUCINEX 600 MG PO (20:41)
[2025-06-21] MEDS: NEPHROCAP 1 CAPSULE PO (20:41)
[2025-06-21] MEDS: LIPITOR 40 MG PO (20:41)
[2025-06-21] MEDS: ROCALTROL 0.25 MCG PO (20:42)
[2025-06-21] MEDS: RENVELA 1600 MG PO (20:42)
[2025-06-21] MEDS: COREG 25 MG PO (22:08)
[2025-06-22 02:08] VITALS: BP 152/58
[2025-06-22 02:11] VITALS: BMI 27.0
--- NOTE | 2025-06-22 02:22 | PTCARENOTE ---
Pt. has had no complaints of chest pain or shortness of breath this shift, left radial and right groin cath sites WNL, on RA with pulse ox mid to high 90's. Ambulates with steady gait independently. Pt. hoping for discharge later today.
[2025-06-22 02:31] LABS: Hematocrit 35.7 % (39.0-52.0); Hemoglobin 11.1 g/dL (13.0-18.0); Mean Corp Hgb Conc. 31.1 g/dL (33.0-37.0); Mean Corpuscular Volume 93.5 fL (80.0-94.0); Platelet Count 121 10^3/uL (130-400); Red Cell Dist. Width 16.8 % (11.5-14.5)
[2025-06-22 02:57] LABS: Troponin I 0.326 ng/ml
[2025-06-22 03:43] LABS: Blood Urea Nitrogen 40 mg/dl (9-20); Calcium 9.0 mg/dl (8.4-10.2); Carbon Dioxide 28 mmol/L (22-30); Chloride 102 mmol/L (98-107); Estimated Creatinine Clearance 10 ml/min; Glucose 54 mg/dl (70-99); HDL Cholesterol 35 mg/dl; LDL Cholesterol, Calculated 16 mg/dl; Potassium 4.4 mmol/L (3.5-5.1); Sodium 138 mmol/L (135-145); Very Low Density Lipoprotein 9 mg/dl (0-30); eGFR 8.36
[2025-06-22 04:03] LABS: Glucose - Point of Care 82 mg/dl (70-99)
--- NOTE | 2025-06-22 05:44 | PTCARENOTE ---
Notified by lab that pt.'s glucose 54 on morning BMP - pt. asymptomatic - 4 oz juice provided, accucheck 15 minutes later (at 0401) 82. Will recheck again at 0600.
--- NOTE | 2025-06-22 05:48 | PTCARENOTE ---
Pt.'s glucose 54 on AM lab work. Pt. asymptomatic. 4 oz OJ provided and blood sugar repeated at 0401 with results of 82. Pt. given snack and encouraged to order breakfast early this morning.
[2025-06-22 06:04] LABS: Glucose - Point of Care 118 mg/dl (70-99)
[2025-06-22 07:17] VITALS: BP 133/53
[2025-06-22 08:49] LABS: Glucose - Point of Care 156 mg/dl (70-99)
--- NOTE | 2025-06-22 09:02 | W.PN.HOSP.TC ---
Addendum entered and electronically signed by Halima Nieves MD 06/22/25 12:49:
Addendum
Hypoxia only, resolved
End
Original Note:
Today's Communication/Plan
-
dc
Assessment / Plan
Assessment / Plan
Physical Exam
General: Well Developed, Well Nourished and No Apparent Distress
HEENT: NormoCephalic, Moist mucous membranes and Atraumatic
Respiratory: Clear with no rales or wheezes
Cardiac: S1/S2,
GI: Soft, Non Tender, Non Distended and Normal Bowel Sounds;
Musculoskeletal: No Clubbing, No Cyanosis and No Edema
Psych: calm
Neuro: Nonfocal/grossly intact, AAOX3.
# Acute on chronic HFrEF exacerbation due to volume overload
Resolved. Back to baseline
No sob
No hypoxia
d/w nephrology and cardiology, ok to go home
CAD status post CABG/stents
No chest pain
Patient presented for elective right/ left heart catheterization 06/21/2025 as part of workup for TAVR. No new angioplasty was placed. Left main to LCx stent from 2021 was patent. Grafts were patent.
- Continue aspirin, statin
Severe aortic stenosis
- Plan for TAVR in the near future
Essential hypertension
- Continue amlodipine
- Continue Coreg
ESRD on hemodialysis
- Nephrology consulted for hemodialysis
- Continue calcitriol
- Continue sevelamer
Chronic anemia renal disease
- Hemoglobin of 11.1 stable
Peripheral arterial disease
Carotid artery stenosis status post left internal carotid artery angioplasty/stent
History of GI bleeding
- Continue Protonix
Active smoker
Full code
DVT prophylaxis heparin
Cardiac diet
Total discharge time spent to see the patient, examine the patient, review data and lab results, discuss discharge plan with patient, nursing staff around 65 minutes�
Anticipated Discharge: Today
Subjective/Interval History
-
Date of Service: June 22, 2025
no chest pain
no sob
he is asking to go home
Objective Data
-
Labs:
Laboratory Results
06/22/25 06/22/25
02:12 02:53
WBC 8.1
Hgb 11.1 L
Hct 35.7 L
Plt Count 121 L
Sodium Cancelled 138
Potassium Cancelled 4.4
Chloride Cancelled 102
Carbon Dioxide Cancelled 28
BUN Cancelled 40 H
Creatinine Cancelled 6.6 H*
Glucose Cancelled 54 L*
Calcium Cancelled 9.0
Vital Signs:
Vital Signs
Temp Pulse Resp BP Pulse Ox
98.2 F 68 16 133/53 96
06/22/25 07:25 06/22/25 07:17 06/22/25 02:10 06/22/25 07:17 06/22/25 07:39
I&O
06/21/25 06/22/25 06/23/25
06:59 06:59 06:59
Intake Total 960 / 960
Balance 960 / 960
--- NOTE | 2025-06-22 09:19 | W.PN.CARDCBS ---
Addendum entered and electronically signed by Juan Cee DO 06/22/25 09:52:
I saw and examined the patient.
The Nuclear Spectroscopist's note was reviewed and I agree with the note.
Comment:
No acute events overnight patient resting comfortably in bed.
Euvolemic on examination and roughly 6 pound weight loss. No reported shortness of breath per patient
Continue current medical therapy without changes at this time
Outpatient TAVR workup, our office to reach out to patient per Dr. Sorensen
Stable for DC from CV standpoint with follow-up as scheduled
Original Note:
Today's Communication / Plan
-
-TAVR w/u in outpt setting
-ok for d/c from cardiac standpoint
Impression / Plan
-
Primary slat twister: ABHILASH Casiano
Impression:
Hypoxemia
Acute heart failure reduced EF
Severe aortic stenosis
CAD status post CABG and stenting
Hypertension
End-stage renal disease on HD
PAD
Carotid artery stenosis status post left internal carotid artery angioplasty/stent
GI bleeding
06/21/2025 right/left heart cath:
-RA 14, PA 64/30, PCWP 35 with V waves to 51, CO/CI 4.6/2.4
-Mean invasive trans aortic gradient 31 mmHg, MAYA 0.71 cm�
-Patent bypass grafts including QUINONES to LAD and SVG to OM 2 with proximal 30% stenosis
-Left main to left circumflex stent from 2021 patent
-Significant [place] CAD
Plan:
Patient presented for elective right/ left heart catheterization 06/21/2025 as part of workup for TAVR. He became hypertensive and hypoxic during procedure with elevated PCWP 35 and admitted for volume overload
-Chest x-ray with mild to moderate pulmonary edema
- Received Lasix 80 mg IV during cath and had hemodialysis post cath
- Weight down 6 pounds overnight to 172 pounds.
- Symptomatically feels improved with no shortness of breath. Off oxygen.
- Telemetry personally reviewed: Normal sinus rhythm 65 to 80 bpm
-TAVR workup to be completed in outpatient setting,per TAVR protocol needs CTA chest/abdomen/pelvis and discussion of case at structural heart meeting. TAVR team aware and will contact pt on 06/24.
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
Subjective
Date of Service: June 22, 2025
denies SOB
wt down 6 lbs
hoping to go home
Objective
Labs:
06/22/25 02:12
06/22/25 02:53
Labs
Hgb 11.1 g/dL (13.0-18.0) L 06/22/25 02:12
Hct 35.7 % (39.0-52.0) L 06/22/25 02:12
Plt Count 121 10^3/uL (130-400) L 06/22/25 02:12
Sodium 138 mmol/L (135-145) 06/22/25 02:53
Potassium 4.4 mmol/L (3.5-5.1) 06/22/25 02:53
BUN 40 mg/dl (9-20) H 06/22/25 02:53
Creatinine 6.6 mg/dL (0.7-1.3) H* 06/22/25 02:53
Glucose 54 mg/dl (70-99) L* 06/22/25 02:53
Troponins
06/21/25 06/21/25 06/21/25
13:35 14:19 19:14
Troponin I Cancelled 0.047 H* 0.160 H* D
06/22/25
02:12
Troponin I 0.326 H* D
Vital Signs and I&O:
Vital Signs
Temp Pulse Resp BP Pulse Ox
98.2 F 68 16 133/53 96
06/22/25 07:25 06/22/25 07:17 06/22/25 02:10 06/22/25 07:17 06/22/25 07:39
Vital Signs
Temp Pulse Resp BP Pulse Ox
98.2 F 68 16 133/53 96
06/22/25 07:25 06/22/25 07:17 06/22/25 02:10 06/22/25 07:17 06/22/25 07:39
Intake & Output
06/20/25 06/21/25 06/22/25 06/23/25
06:59 06:59 06:59 06:59
Intake Total 960 / 960
Balance 960 / 960
Physical Exam
Physical Exam
GEN: No distress, awake, Ox3
HEENT: supple, anicteric, mmm
LUNGS: CTA, no wheezes/rales
CV: Reg, S1/S2, 2/6 GEOFF
ABD: soft, BS+, NT/ND
EXT: No edema
NEURO: Gross non-focal
SKIN: No rash
[2025-06-22 09:25] LABS: Troponin I 0.338 ng/ml
[2025-06-22] MEDS: VITAMIN D3 (cholecalciferol) 50 MCG PO (09:33)
[2025-06-22] MEDS: PROTONIX 40 MG PO (09:33)
[2025-06-22] MEDS: RENVELA 1600 MG PO (09:33)
[2025-06-22] MEDS: NORVASC 2.5 MG PO (09:33)
[2025-06-22] MEDS: EFUDEX-40 1 APPLIC TOPICAL (09:34)
[2025-06-22] MEDS: ASPIR LOW (ENTERIC COATED) 81 MG PO (09:34)
[2025-06-22] MEDS: COREG 25 MG PO (09:52)
--- NOTE | 2025-06-22 10:44 | PTCARENOTE ---
Pt was discharged to home with . Instructions provided including f/u appointments. monitoring and evaluation advisor and piv removed prior to dc. PCT escorted pt out by wheelchair.
--- NOTE | 2025-06-22 11:47 | W.PN.NEPH.PH ---
Today's Communication / Plan
-
dc
Assessment/Plan
-
Assessment
ESRD
Volume overload
Severe
CAD'/CABG
Hypertension
Plan
for dc
next HD tuesday
-
-
Date of Service: June 22, 2025
CC / HPI / ROS
-
Chief Complaint:
ESRD
History of Present Illness:
tolerated HD yesterday with some cramping
BP stable
Hgb stable
Review of Systems:
no CP/SOB
Labs
-
Labs:
WBC 8.1 10^3/uL (4.8-10.8) 06/22/25 02:12
RBC 3.82 10^6/uL (4.70-6.10) L 06/22/25 02:12
Hgb 11.1 g/dL (13.0-18.0) L 06/22/25 02:12
Hct 35.7 % (39.0-52.0) L 06/22/25 02:12
Plt Count 121 10^3/uL (130-400) L 06/22/25 02:12
Sodium 138 mmol/L (135-145) 06/22/25 02:53
Potassium 4.4 mmol/L (3.5-5.1) 06/22/25 02:53
Chloride 102 mmol/L (98-107) 06/22/25 02:53
Carbon Dioxide 28 mmol/L (22-30) 06/22/25 02:53
BUN 40 mg/dl (9-20) H 06/22/25 02:53
Creatinine 6.6 mg/dL (0.7-1.3) H* 06/22/25 02:53
eGFR 8.36 06/22/25 02:53
Glucose 54 mg/dl (70-99) L* 06/22/25 02:53
Calcium 9.0 mg/dl (8.4-10.2) 06/22/25 02:53
Albumin 4.3 g/dl (3.5-5.0) 06/21/25 09:06
Physical Exam
-
Vital Signs:
Vital Signs
Temp Pulse Resp BP Pulse Ox
98.2 F 68 16 133/53 96
06/22/25 07:25 06/22/25 07:17 06/22/25 02:10 06/22/25 07:17 06/22/25 07:39
Cardiovascular:: Regular rate and rhythm
Respiratory:: Bilateral: CTA
Lung Excursion:: Normal
Abdomen:: Nontender and Soft
Bowel Sounds:: Normal
Extremity Edema:: None: Bilateral:
--- NOTE | 2025-06-22 12:46 | W.DCSUMMARY ---
Discharge Summary
Discharge Data
Date of Admission: 06/21/25
Date of Discharge: 06/22/25
-
Pending Results: No
Hospital Course
70 years old male who underwent elective left heart catheterization for anticipated TAVR surgery presented with shortness of breath and volume overload. Patient was admitted to the hospital, he did have hypoxia and was given oxygen supplement.
Patient was evaluated by cardiology and nephrology. He underwent hemodialysis with stabilizing of his vital signs. Patient felt better overnight and he did not have recurrent hypoxia. He was able to ambulate independently. Barrel Raiser
recommended to continue medications from home without changes and to continue follow-up for TAVR workup in the near future. Insole Lip Turner recommended to continue hemodialysis as scheduled for Tuesday, Tuesday and Tuesday. Patient remained
hemodynamic stable was discharged home in stable condition to the hospital to treat acute on chronic heart failure with reduced ejection fraction.
Discharge Plan
-
Patient Disposition: Home (Routine Discharge)
Discharge Diagnosis/Procedures: Cardiac cath
Diet: Low Cholesterol and 2 Gram Sodium
Specialty Instructions: Weigh Daily- Call MD for wt gain/loss 3 lbs overnight/5 lbs in 1 week
Stand Alone Forms: DC Instructions- Cath/EP Lab
Referrals:
Harsh Hood MD [Family Provider, Internal Medicine]
Rey Casiano MD [Active, Cardiology] - 06/25/25 3:20 pm
Prescriptions:
Continued
cholecalciferol (vitamin D3) 2,000 UNITS tablet
2,000 units PO DAILY
aspirin 81 MG tablet,delayed release (DR/EC)
81 mg PO DAILY Qty: 0 0RF
Patient Comments:
.
sevelamer carbonate 800 mg Tablet
1,600 mg PO TID
carvedilol 25 mg tablet
25 mg PO QPM
Patient Comments:
except dialysis days.
Dialysis days: 12.5mg in am, 25mg at nighttime.
calcitriol 0.25 mcg capsule
0.25 mcg PO HS
carvedilol 12.5 mg Tablet
12.5 mg PO MOWEFR
Patient Comments:
Dialysis days: 12.5mg in am, 25mg at nighttime.
Rx Instructions:
Takes in the morning
amlodipine 2.5 mg Tablet
2.5 mg PO DAILY
carvedilol 25 mg Tablet
25 mg PO SUTUTHSA
Patient Comments:
Dialysis days: 12.5mg in am, 25mg at nighttime.
Rx Instructions:
Takes in the morning
atorvastatin 40 mg Tablet
40 mg PO HS
acetaminophen [Tylenol Extra Strength] 500 mg tablet
1,000 mg PO Q6HPRN PRN (Reason: mild pain) Qty: 1 0RF
guar gum Packet
1 tbsp PO DAILY
pantoprazole 40 mg Tablet,Delayed Release (Dr/Ec)
40 mg PO DAILY
Jaquelin-Erasmo 0.8 mg Tablet
1 tab PO HS
fluorouracil 0.5 % Cream
1 applic TOPICAL DAILY
oxymetazoline 0.05 % Golva,Non-Aerosol
2 spray INTRANASAL Q12H PRN (Reason: dryness)
guaifenesin [Mucinex] 600 mg Tablet Extended Release 12hr
600 mg PO HS
Discharge Orders:
Discharge Patient (As Directed); Ordered 06/22/25
Ordered By: Halima Nieves
Care Plan Goals
Care Plan Goals:
Problem: Readiness for enhanced knowledge related to diagnosis and treatment plan
Goal: Understand your diagnosis and treatment plan needs, including medications if applicable.
Instructions: Know your diagnosis, underlying causes and treatment plan options, including medications if applicable. Consult with your health care team to learn about your diagnosis and treatment plan, including medications if applicable.
Discharge Date and Time
Discharge Date/Time: 06/22/25 10:56
Print Language: TURKISH
== END 2025-06-22 10:56 | disposition home or self-care (01) | DRG 286 ==
LOC: IVU 12:21
PROVIDERS: Internal Medicine Interventional Cardiology; Nurse Practitioner Adult Health; ADMITTING PHYSICIAN Hospitalist; ATTENDING PHYSICIAN Internal Medicine; CONSULT PHYSICIAN Specialist; FAMILY PHYSICIAN Internal Medicine Geriatric Medicine
PROC: 5A1D70Z Performance of Urinary Filtration, Intermittent, Less than 6 Hours Per Day (ICD-10-PCS; 2025-06-21)
PROC: B2121ZZ Fluoroscopy of Single Coronary Artery Bypass Graft using Low Osmolar Contrast (ICD-10-PCS; 2025-06-21)
PROC: B2111ZZ Fluoroscopy of Multiple Coronary Arteries using Low Osmolar Contrast (ICD-10-PCS; 2025-06-21)
PROC: 4A023N8 Measurement of Cardiac Sampling and Pressure, Bilateral, Percutaneous Approach (ICD-10-PCS; 2025-06-21)
DX: I13.2 Hypertensive heart and chronic kidney disease with heart failure and with stage 5 chronic kidney disease, or end stage renal disease (principal); I50.23 Acute on chronic systolic (congestive) heart failure; N18.6 End stage renal disease; I42.9 Cardiomyopathy, unspecified; D63.1 Anemia in chronic kidney disease; I73.9 Peripheral vascular disease, unspecified; F17.210 Nicotine dependence, cigarettes, uncomplicated; R09.02 Hypoxemia; I25.10 Atherosclerotic heart disease of native coronary artery without angina pectoris; I08.0 Rheumatic disorders of both mitral and aortic valves; Z95.1 Presence of aortocoronary bypass graft; Z99.2 Dependence on renal dialysis; Z95.820 Peripheral vascular angioplasty status with implants and grafts; Z79.82 Long term (current) use of aspirin; Z79.899 Other long term (current) drug therapy; Z87.19 Personal history of other diseases of the digestive system
CPT/HCPCS: 71045; 80048; 80053; 80061; 82962; 84484; 85027; 87070; 93005; 93461; 99152; 99153; C1769; C1894; G0257; P9047; Q9967

== ENCOUNTER → 2025-07-02 09:31 | Outpatient (REF) | payer MEDICARE, OTHER, SELFPAY | LOC: RAD 09:31 | PROVIDERS: ATTENDING PHYSICIAN Nurse Practitioner Adult Health; FAMILY PHYSICIAN Internal Medicine Geriatric Medicine | DX: N18.6 End stage renal disease (principal); I35.0 Nonrheumatic aortic (valve) stenosis | CPT/HCPCS: 74174; 75572; Q9967 ==